=== PATIENT | male | born 1945 | race Caucasian/White ===

== ENCOUNTER 2022-08-19 09:40 | Observation (INO) ==
--- NOTE | 2022-08-03 11:00 | PAT Medication Instructions ---
Medication Instructions Date of Service August 03, 2022 Home Medications metoprolol succinate 50 mg tablet,extended release 24 hr 75 mg PO HS aspirin 81 mg tablet 81 mg PO HS cyanocobalamin (vitamin B-12) 1,000 mcg tablet (Vitamin B-12) 1,000 mcg PO QAM ergocalciferol (vitamin D2) 1,250 mcg (50,000 unit) capsule (Vitamin D2) 50,000 unit PO WK Glucosamine Chondroitin) 1 cap PO QAM lisinopril 40 mg tablet 40 mg PO QAM omega-3 fatty acids 1,000 mg PO QAM hydralazine 25 mg tablet 50 mg PO BID tamsulosin 0.4 mg capsule (Flomax) 0.4 mg PO 1300 diltiazem HCl 360 mg capsule,extended release 24 hr 360 mg PO QPM rosuvastatin 20 mg tablet 20 mg PO HS STOP taking 2 weeks before surgery (or as soon as possible if surgery is within 2 weeks) Glucosamine Chondroitin) 1 cap PO QAM omega-3 fatty acids 1,000 mg PO QAM DO NOT take the morning of surgery cyanocobalamin (vitamin B-12) 1,000 mcg tablet (Vitamin B-12) 1,000 mcg PO QAM ergocalciferol (vitamin D2) 1,250 mcg (50,000 unit) capsule (Vitamin D2) 50,000 unit PO WK lisinopril 40 mg tablet 40 mg PO QAM Take morning of surgery With a small sip of water, OTHERWISE NOTHING TO EAT OR DRINK AFTER MIDNIGHT: hydralazine 25 mg tablet 50 mg PO BID Take evening before surgery metoprolol succinate 50 mg tablet,extended release 24 hr 75 mg PO HS aspirin 81 mg tablet 81 mg PO HS (continue as normal unless told otherwise by surgeon) hydralazine 25 mg tablet 50 mg PO BID tamsulosin 0.4 mg capsule (Flomax) 0.4 mg PO 1300 diltiazem HCl 360 mg capsule,extended release 24 hr 360 mg PO QPM rosuvastatin 20 mg tablet 20 mg PO HS Other Notes If you have any questions please call us at [phone] or [phone] or [phone] or [phone]
--- NOTE | 2022-08-05 09:19 | Anesthesiology Consultation ---
Date of Service August 05, 2022 Assessment & Plan (1) Encounter for pre-operative examination: Chart Review Chart Review: Pending: Refer to Additional Notes / Consult section (pending PCP response on hyperkalemia and most recent pacer check ) and Patient seen in Pre Admission Testing -Please fax optimization form to PCP regarding mild hyperkalemia on preop labs - Please fax for most recent pacer check Pt is NOT a Same Day Joint candidate Per PAT appt on 08/05/22, patient denies any recent travel or large group activities. Pt is vaccinated for Covid. Will leave to surgeon's discretion if preop Covid testing needed. Educated on importance of using Covid precautions one week prior to surgery Pt seen by cardio 06/16/22= patient seen for cardiac evaluation and review of medications. Elevated BP readings. BP usually 150s to 160s systolically. Usually 90 diastolic. Continue current medications. Check BP on regular basis. Low-salt diet. Increase hydralazine dose for better BP control. Pacemaker interrogation is reviewed and showed normal pacemaker function and no significant cardiac arrhythmia. Teaching & Discussion Pre-Anesthesia Teaching/Discussion Notes: Instructed NPO after midnight before surgery,except medications with 15 cc of water. Medication instructions provided according to the PAT guidelines. History Surgery Operation Date: 08/19/22 10:40 Proposed Procedures p Right Total Knee Arthroplasty - Tristan Ramirez MD Height/Weight Height: 5 ft 7 in Weight: 80.6 kg Allergies Allergy/AdvReac Type Severity Reaction Status Date / Time ciprofloxacin Allergy Mild insomnia, Verified 08/02/22 08:11 "felt weird" chloroquine AdvReac Intermediate "got Verified 08/02/22 08:11 chills, cold, couldn't sleep or rest" Medications Home Medications Medication Instructions Recorded Confirmed Last Taken metoprolol succinate 50 mg 75 mg PO HS 07/11/20 08/02/22 07/28/20 22:00 tablet,extended release 24 hr aspirin 81 mg tablet 81 mg PO HS 07/16/20 08/02/22 07/22/20 cyanocobalamin (vitamin B-12) 1,000 mcg PO QAM 07/16/20 08/02/22 07/28/20 1,000 mcg tablet (Vitamin B-12) ergocalciferol (vitamin D2) 1,250 50,000 unit PO WK 07/16/20 08/02/22 07/25/20 mcg (50,000 unit) capsule (Vitamin D2) glucosamine sulf dipot 1 cap PO QAM 07/16/20 08/02/22 07/22/20 chlr,msm,chond 550 mg-C 30 mg-asmita 1 mg capsule (Glucosamine Chondroitin) lisinopril 40 mg tablet 40 mg PO QAM 07/16/20 08/02/22 07/28/20 07:00 omega-3 fatty acids 1,000 mg PO QAM 07/16/20 08/02/22 07/22/20 hydralazine 25 mg tablet 50 mg PO BID 07/29/22 08/02/22 Unknown tamsulosin 0.4 mg capsule (Flomax) 0.4 mg PO 1300 07/29/22 08/02/22 Unknown diltiazem HCl 360 mg 360 mg PO QPM 08/02/22 08/02/22 Unknown capsule,extended release 24 hr rosuvastatin 20 mg tablet 20 mg PO HS 08/02/22 08/02/22 Unknown Past Medical History Medical History Bradycardia reason for pacemaker CAD (coronary artery disease) PCI 1992- angioplasty and atherectomy of coronary artery History of kidney stones No recent issues Hyperlipidemia Hypertension Osteoarthritis Pacemaker placed 2018 @ [facility]--meditronic--follows with [facility]ology associates in [place], [place]. last checked in office March 2022 - also will be checked remotely [id number]. Exercise / Class Metabolic Activity II 4-5 Yardwork/Stairs/Walk up hill (one flight of stairs- no chest pain or SOB) Past Family History Family History Other No family history of adverse response to anesthesia Past Surgical History Surgical History History of appendectomy History of atherectomy 1991 History of cardiac catheterization x3--last 1991--no stents, had atherectomy History of colonoscopy with polypectomy History of cystoscopy with stone basketing History of surgical removal of ganglion cyst right History of tooth extraction all teeth removed S/P placement of cardiac pacemaker 2019 at [facility]. Status post left knee replacement Past Anesthesia History No Hx of Anesthesia Complications and No Family Hx of Anesthesia Complications History of PONV No Hx of PONV and No Hx of Motion Sickness Social History Smoking Status: Former smoker tobacco type: cigarettes Do You Dip or Chew Tobacco: No Smoking End Date: ~0082-4142's Hx Alcohol Use: Yes Alcohol type: beer and hard liquor alcohol intake frequency: 0-2 drinks per day Alcohol Intake Frequency Comment: 2 drinks/day Hx Substance Use: No substance use type: does not use Review of Systems Hx of snoring- no hx of sleep study Patient denies chest pain, shortness of breath, dyspnea on exertion, reflux, cough, wheezing, palpitations. No hx of seizures, stroke, [place]. No hx of blood clots or blood transfusions Physical Exam Vital Signs VITALS BP 154/95 (usually better controlled diastolically per patient) P 85 TEMP 97.8 SP02 97% RESP 16 Constitutional no acute distress ENMT Mouth: no TMJ clicking Thyromental Distance: > or= 3.5 Finger Breadths (4.0) Mallampati Class: III Full dentures on top and bottom Neck + limited neck extension (minimal) Respiratory normal respiratory effort; no respiratory distress Auscultation: lungs clear to auscultation bilaterally; no wheezes Cardiovascular Rate/Rhythm: regular rate and regular rhythm Heart Sounds: no murmur Vessels: no carotid bruit Musculoskeletal Spine: no pain with cervical ROM Extremities: extremities normal to inspection Psychiatric Orientation: alert Lab Results Anesthesia Preop Results Results Anesthesia Widget: WBC 5.53 K/ul (4.8-10.8) 08/05/22 Hgb 13.5 g/dl (14.0-18.0) L 08/05/22 Hct 39.7 % (42.0-52.0) L 08/05/22 Plt 239 K/uL (130-400) 08/05/22 Na 139 mmol/L (136-145) 08/05/22 K 5.2 mmol/L (3.5-5.1) H 08/05/22 Cl 105 mmol/L (98-107) 08/05/22 CO2 30 mmol/L (21-32) 08/05/22 BUN 16 mg/dl (6-23) 08/05/22 Creat 1.05 mg/dl (0.6-1.4) 08/05/22 Glucose Level 118 mg/dl (70-99(Fasting)) H 08/05/22 PT 10.3 Seconds (9.0-12.0) 08/05/22 PTT 26.5 Seconds (21.0-31.0) 08/05/22 INR 1.0 (0.9-1.1) 08/05/22 Blood Type B Positive 08/05/22 Antibody Screen NEGATIVE 08/05/22 Testing Electrocardiogram Date: 08/05/22 Atrial paced rhythm with prolonged AV conduction at 65 bpm Nonspecific T wave abnormality in anterior lateral leads When compared to EKG from July 23, 2020no significant changes found per cardio Chest X-Ray Date: 08/05/22 Findings: + NAD Echocardiogram Date: 06/11/21 EF: 55-60% LV Function: normal RWMA: + none Other Findings: + diastolic dysfunction (Grade 1) Mild to moderate RV enlargement Mild right and left atrial enlargement Aortic valve appears to be mildly sclerotic. Mitral valve shows mild sclerosis and mild mitral annulus calcification. Mild MR, mild TR, mild NV Estimated PASP 25-30 mmHg False tendon visualized in left ventricle. No intracardiac shunt; no significant pericardial effusion IVC appears normal diameter with normal respiration variation. Stress Test Date: 05/18/21 Type: nuclear Based upon EKG criteria, this test is nondiagnostic. Based on the nuclear imaging findings there is no evidence of myocardial ischemia or infarction Study is normal. COVID-19 Risk Screen Screening Information COVID-19 Screen Date: 08/05/22 Exposure 21 Days Family/Household +COVID Last 21 Days: No Exposure 10 Days Any COVID Exposure Last 10 Days: No Symptoms Last 10 Days Experienced COVID Sx Last 10 Days: No + COVID 0-90 Days COVID + in Last 0-90 Days: No Risk Plan COVID Risk Plan: No Risk Identified Patient Education COVID Preop Screening Education Complete: Yes
[~2022-08-19 09:40] MED LIST: ACETAMINOPHEN 500 MG TAB PO SCH; BUPIVACAINE 0.5 % 5 MG/1 ML PF 10ML VIAL ONE; CeleBREX 200 MG CAP PO SCH; FAMOTIDINE 20 MG TAB PO SCH; LR 500ML BOLUS, THEN 15ML/HR IV SCH; LR 60ML/HR IV SCH; METOCLOPRAMIDE HCL 10 MG TABLET PO SCH; ROPIVACAINE 0.5% 5 MG/ML 30 ML VIAL ONE; TRANEXAMIC ACID 1,000 MG **IV Intra-op IV SCH; ceFAZolin 2000MG 2,000 MG/15 ML SYR IV SCH
--- NOTE | 2022-08-19 10:27 | History & Physical Bridge Note ---
Date of Service August 19, 2022 History & Physical Bridge Note I have examined the patient, reviewed the History & Physical and in the interval since the performance of the History & Physical I have noted the following changes of clinical significance: no changes noted
[2022-08-19] MEDS ORDERED: ATROPINE SULFATE 0.1 MG/ML 10ML SYR IV PRN (10:51)
[2022-08-19] MEDS ORDERED: ONDANSETRON INJ 2 MG/ML 2 ML VIAL IV PRN ×2 (10:51→15:32)
[2022-08-19] MEDS ORDERED: fentaNYL citrate 100 MCG/2 ML VIAL IV PRN (10:51)
[2022-08-19] MEDS ORDERED: ePHEDrine sulfate 50 MG/ML AMP IV PRN (10:51)
[2022-08-19] MEDS ORDERED: MIDAZOLAM HCL 1 MG/ML 2ML VIAL ONE (11:38)
[2022-08-19] MEDS ORDERED: fentaNYL citrate 100 MCG/2 ML VIAL ONE (11:38)
[2022-08-19] MEDS ORDERED: SODIUM CHLORIDE 0.9% PF 50 ML VIAL ONE (12:46)
[2022-08-19] MEDS ORDERED: BUPIVACAINE LIPOSOME 1.3% 266 MG/20 ML VIAL ONE (12:46)
[2022-08-19] MEDS ORDERED: BUPIVACAINE/EPINEPHRINE 0.25% 1:200,000 30 ML VIAL ONE (12:46)
[2022-08-19] MEDS ORDERED: ONDANSETRON INJ 2 MG/ML 2 ML VIAL ONE (13:11)
[2022-08-19] MEDS ORDERED: KETOROLAC 30 MG/ML VIAL ONE (13:11)
[2022-08-19] MEDS ORDERED: DEXAMETHASONE SOD INJ 4 MG/ML VIAL ONE ×3 (13:11)
[2022-08-19] MEDS ORDERED: PROPOFOL IV EMULSION 10 MG/ML 20 ML VIAL IV ONE ×2 (13:11)
--- NOTE | 2022-08-19 15:00 | Operative Report ---
PG Post Operative Report Pre & Post Diagnosis Operation Date: 08/19/22 12:30 Pre-Op Diagnosis: Right Knee Advanced Degenerative Joint Disease Post-Op Diagnosis: Right Knee Advanced Degenerative Joint Disease I identified the patient and participated in the time-out.: Yes Procedure Operation Date: 08/19/22 12:30 Actual Procedures p Right Total Knee Arthroplasty(Right) - Tristan Ramirez MD Surgeon Tristan Ramirez MD Tank Car Inspector David Todd PA-C Estimated Blood Loss 50 Findings Consistent with Post-Op Diagnosis Operative findings were advanced right knee DJD. Patient had extensive grade 4 [id number] disease the entire medial compartment. Healed very large knee joint effusion. He had diffuse degenerative changes elsewhere. Osteophytes in all 3 compartments. Specimens Right knee sent for pathology Anesthesia Type Spinal MAC Complications none Disposition Accompanied Patient To Recovery: No Indications Patient is a 77-year-old gentleman whose had a long history of knee problems. He actually had his left knee replaced about 12 years ago and is done well with this. Over the past 10 years he developed increased pain discomfort and recurrent swelling in his right knee. He is exhausted and failed all conservative measures. He elected proceed with total knee arthroplasty. Description of Procedure Operative implants consist of: 1 Biomet Vanguard size 72.5 right posterior stabilized femoral component. 2. Biomet size 79 tibial tray. 3. 10 mm posterior stabilized polyethylene insert. 4. 31 x 8 all poly patella. The patient was taken to the operating, identified, and placed on the operating table supine position but all contact areas were properly padded. IV antibiotics tried by anesthesia team. A spinal anesthetic and abductor canal block had been provided in the holding area. Cervantes catheter was placed in sterile fashion. Right thigh high tourniquet was then placed in the right lower extremity was then prepped and draped in usual sterile fashion. The right leg was elevated and exsanguinated with use of an Esmarch and the tourniquet was placed at 300 mmHg. An anterior approach of the right knee was then performed through a longitudinal incision centered over the patella. Sharp dissection was carried through subcutaneous tissue down the extensor mechanism. A medial parapatellar arthrotomy incision was made. Some subperiosteal dissection was carried out medially. The fat pad was resected from Neath patella tendon. Lateral patellofemoral ligament was released. Patella subluxated laterally and the knee was flexed. The osteophytes taken off distal femur. The ACL and PCL released from the distal femur the tibia subluxated anteriorly. The external tibial alignment jig was then placed in the interface the tibia and adjusted 14 mm medially. Proximal tibial cut was made remove about a millimeter from the most deficient aspect medial tibial plateau. Some osteophytes taken off medial and posterior medially. Tibia sized to a size 79. Attention drawn the femur. The distal femur stem with a sharp drill. Intramedullary canal was suction. A right 6 degree valgus cutting guide was placed. Distal femoral cutting block was pinned in place. Distal femoral cut was made to take an additional 3 mm of bone off distal femur. The femur was then sized to a size 72.5. The AP cutting block was pinned parallel to the epicondylar axis which was 4 degrees of external rotation. The anterior cut, anterior chamfer, posterior cut, posterior chamfer cuts were made. The box cutting guide was placed in a just slight lateral and the box cut was made. The knee was flexed. The remnants of the medial and lateral menisci were excised. The osteophytes were taken off the posterior aspect the femur. A trial femoral component was placed. The tibial tray was pinned in maximum external rotation and the drill and stem punch were used to create defect in proximal tibia for the tibial tray. The knee was then trialed and the 10 mm insert fit most appropriately. Attention drawn the patella. The patella cleaned of all soft tissues. Patella thickness measured 20 mm in thickness was cut down to 13. Was sized to a size 31 patella. The lug holes were drilled for the 31 patella. The lateral osteophyte was removed. Patella button was placed. Knee was taken through range of motion and the patella tracked nicely with no thumbs test. Attention was then drawn to placing permanent components. All trial components were removed. Bone plug was placed in the distal femur to limit blood loss. Double batch Palacos G cement was mixed. Biomet Vanguard size 72.5 right posterior stabilized femoral component, size 79 tibial tray, 10 mm posterior stabilized polyethylene insert, and a 31 x 8 all-poly patella then cemented in place. New spreadout into full extension till cement hardened. Final cement check was then performed. Pericapsular tissues were injected with total 100 cc of combination of 20 cc of Exparel, 30 cc normal saline, 50 cc of quarter percent Marcaine with epinephrine. Patient did receive 1 g tranexamic acid. The tourniquet was then let down for final tourniquet time of 59 minutes. Hemostasis assured with electrocautery. Extensor mechanism then closed with combination 1 PDS suture and #1 Vicryl suture in in [id number] fashion. The extensor mechanism checked found to be intact with subcutaneous tissue then closed with 2 Dexon suture in buried interrupted fashion skin was closed skin matteo. Leg was then cleaned and dried and sterile dressed with Xeroform, 4 fours, sterile ABD pad, sterile cast padding, Raman bandage were applied. The patient then transferred to the recovery room in stable condition. Patient tolerated procedure well no complications. David Todd, my physician pizza hut assistant, was present for the entire procedure. His assistance was essential and required for appropriate patient positioning, prepping and draping, surgical exposure, performing the technical details of the operation, placement the implants, closure of the wound, and placement of the sterile bandage. I attest to the content of the Intraoperative Record and any orders documented therein. Any exceptions are noted below.
--- NOTE | 2022-08-19 15:24 | XRay Report ---
RIGHT KNEE 2 VIEWS History: Right total knee arthroplasty. Degenerative arthritis. Postop. FINDINGS: The patient is status post a right total knee arthroplasty. The hardware is intact. No frac ture or dislocation. Skin matteo are in place. IMPRESSION: Right total knee arthroplasty. No evidence for hardware complication. ACT 112: Negative or not required by law. Electronically signed by: Luis Moya M.D. 08/19/2022 3:23 PM
--- NOTE | 2022-08-19 15:26 | Anesthesiology Progress Note ---
Date of Service August 19, 2022 Anesthesia Post Procedure Vital Signs Vital Signs: Temp Pulse Resp BP Pulse Ox O2 Del Method O2 Flow Rate 08/19/22 15:19 97.0 F L 61 15 135/65 93 Room Air 08/19/22 15:09 61 12 129/60 93 Room Air 08/19/22 14:59 61 12 129/60 95 Room Air 08/19/22 14:49 62 19 120/50 L 98 Room Air 08/19/22 14:49 97.0 F L 62 12 118/55 L 99 Nasal Cannula 4 08/19/22 10:12 98.4 F 69 20 178/80 H 95 Room Air Pain Intensity Right Knee: Pain Intensity: 3 Transfer of Care Handoff Completed per policy Notes Mental Status: alert / awake / arousable and participated in evaluation Patient Amnestic to Procedure: Yes Nausea / Vomiting: adequately controlled Pain: adequately controlled Airway Patency, RR, SpO2: stable & adequate BP & HR: stable & adequate Hydration State: stable & adequate Neuraxial Anesthesia: was administered and sensory block is resolving Anesthetic Complications: no major complications apparent and Pt Satisfied with anesthetic care
[2022-08-19] MEDS ORDERED: HYDROmorphone INJ 0.5 MG/0.5 ML SYR IV PRN (15:32)
[2022-08-19] MEDS ORDERED: bisacodyL 10 MG SUPP PR PRN (15:32)
[2022-08-19] MEDS ORDERED: oxyCODONE HCL IR 5 MG TAB (IMMEDIATE RELEASE) PO PRN (15:32)
[2022-08-19] MEDS ORDERED: MAGNESIUM HYDROXIDE SUSP 30 ML UDC PO PRN (15:32)
[2022-08-19] MEDS ORDERED: METOCLOPRAMIDE HCL INJ 5 MG/ML 2 ML VIAL IV PRN (15:32)
[2022-08-19] MEDS ORDERED: NALOXONE HCL 0.4 MG/1 ML VIAL/CARP IV PRN (15:32)
[2022-08-19] MEDS ORDERED: ALUMINUM/MAGNESIUM SUSP 30 ML UDC PO PRN (15:32)
[2022-08-19] MEDS: SODIUM CHLORIDE 0.9% 1000ML 1,000 ML IV SCH (16:02)
[2022-08-19] MEDS ORDERED: ERGOCALCIFEROL 50,000 UNITS 1250 MCG CAP PO SCH (17:00)
[2022-08-19] MEDS: KETOROLAC TROMETHAMINE 15 MG/ML VIAL IV SCH ×2 (17:20→22:08)
[2022-08-19] MEDS: ASCORBIC ACID 500 MG TAB PO SCH (17:21)
[2022-08-19] MEDS: ceFAZolin 1000MG 1,000 MG/7.5 ML SYR IV SCH (20:13)
[2022-08-19] MEDS: ASPIRIN 81 MG ECTAB PO SCH (20:17)
[2022-08-19] MEDS: DOCUSATE SODIUM 100 MG CAP PO SCH (20:17)
[2022-08-19] MEDS: hydrALAZINE TAB 50 MG TAB PO SCH (20:18)
[2022-08-19] MEDS ORDERED: TRANEXAMIC ACID / 0.7% NACL 1,000 MG/100 ML BAG IV SCH (20:45)
[2022-08-19] MEDS ORDERED: ROSUVASTATIN CALCIUM 20 MG TAB PO SCH (21:00)
[2022-08-19] MEDS ORDERED: dilTIAZem HCL 180 MG CAPCR PO SCH (21:00)
[2022-08-19] MEDS ORDERED: METOPROLOL SUCC 25MG EXT REL TAB PO SCH (21:00)
[2022-08-19] MEDS ORDERED: DOCUSATE SODIUM/SENNA 50/8.6MG TAB PO SCH (21:00)
[2022-08-19] MEDS ORDERED: SENNA 8.6 MG TAB PO SCH (21:00)
[2022-08-19] MEDS: ACETAMINOPHEN 500 MG TAB PO SCH (22:08)
[2022-08-20] MEDS: KETOROLAC TROMETHAMINE 15 MG/ML VIAL IV SCH ×2 (04:17→10:45)
[2022-08-20] MEDS: ceFAZolin 1000MG 1,000 MG/7.5 ML SYR IV SCH (04:17)
[2022-08-20] MEDS: SODIUM CHLORIDE 0.9% 1000ML 1,000 ML IV SCH (04:32)
[2022-08-20] MEDS: ACETAMINOPHEN 500 MG TAB PO SCH (05:46)
[2022-08-20 06:17] LABS: Hematocrit (blood only) 26.4 % (42.0-52.0); Mean Corpuscular Hemoglobin 30.5 pg (25.0-34.0); Mean Corpuscular Hgb Conc 34.1 g/dL (32.0-36.0); Mean Corpuscular Volume 89.5 fL (80.0-100.0); Mean Platelet Volume 10.6 fL (9.4-12.4); Platelet Count 185 K/uL (130-400); RDW Coefficient of Variation 12.5 % (11.5-14.5); RDW Standard Deviation 41.8 fL (36.4-46.3); Red Blood Count 2.95 M/uL (4.70-6.10); White Blood Count 13.44 K/ul (4.8-10.8)
[2022-08-20 06:30] LABS: Calcium 8.3 mg/dl (8.5-10.1); Creatinine Clr Calc Pharmacy 50.9 ml/min; Est GFR (African American) 73.6 ml/min; Est GFR (Non-African American) 63.5 ml/min
--- NOTE | 2022-08-20 07:46 | Progress Notes ---
DATE OF NOTE: 08/20/2022 SUBJECTIVE: A 77-year-old gentleman postoperative day 1 from a right knee replacement. He is doing well. Reports no pain. No chest pain or shortness of breath. Not feeling dizzy or lightheaded. Ho ping to go home today. OBJECTIVE: VITAL SIGNS: Temperature 37.0. Vital signs are stable. GENERAL: Shows a pleasant, elderly male. He is awake, alert, and oriented and looks quite comfortab le this morning. LUNGS: Clear to auscultation. HEART: Has a regular rate and rhythm. ABDOMEN: Soft, nontender, nondistended. EXTREMITIES: Grossly neurovascularly intact except as follows. Examination of the right leg reveals the dressing to be clean, dry and intact. No significant draina ge. He can dorsiflex and plantarflex his foot appropriately. LABORATORY DATA: Hemoglobin 9.0. Hematocrit 26.4. Electrolytes are stable. ASSESSMENT: A 77-year-old gentleman, postoperative day 1 from right knee replacement, doing well. P ain is controlled. He is neurologically intact. PLAN: 1. DVT prophylaxis including thigh-high TEDs, SCDs, and aspirin twice a day. 2. PT/OT, weightbear as tolerated. Right total knee protocol. 3. Pain control, doing okay with current pain regimen. 4. Disposition: Plan to discharge to home with some home health and friends assistance if he does o geeta in therapy today. Job ID: [id number]
[2022-08-20] MEDS ORDERED: dexAMETHasone 10 MG in SYRINGE 0 ML IV SCH (08:00)
[2022-08-20] MEDS: ASPIRIN 81 MG ECTAB PO SCH (08:09)
[2022-08-20] MEDS: DOCUSATE SODIUM 100 MG CAP PO SCH (08:09)
[2022-08-20] MEDS: hydrALAZINE TAB 50 MG TAB PO SCH (08:09)
[2022-08-20] MEDS: ASCORBIC ACID 500 MG TAB PO SCH (08:10)
[2022-08-20] MEDS ORDERED: NON-FORMULARY MEDICATION (Glucos Sul 2kcl-Msm-Chond-C-Mn [Glucosamine Chondroitin] 550-30- PO SCH (09:00)
[2022-08-20] MEDS ORDERED: OMEGA-3 (PURIFIED FISH OIL) 1 GM CAP PO SCH (09:00)
[2022-08-20] MEDS ORDERED: lisinopril 40 MG TAB PO SCH (09:00)
[2022-08-20] MEDS ORDERED: CYANOCOBALAMIN (B-12) 500 MCG TABLET PO SCH (09:00)
[2022-08-20] MEDS ORDERED: MULTIVITAMIN TAB PO SCH (09:00)
[2022-08-20] MEDS ORDERED: TAMSULOSIN HCL 0.4 MG CAP PO SCH (13:00)
--- NOTE | 2022-08-24 13:27 | Discharge Summary ---
Date of Service August 24, 2022 Discharge Data Procedures Performed Operation Date: 08/19/22 12:30 Actual Procedures p Right Total Knee Arthroplasty(Right) - Tristan Ramirez MD Hospital Course (1) Status post total right knee replacement: This is a 77 year old patient admitted on 08/19/22 and underwent total knee arthroplasty. He tolerated the procedure well and there were no complications. Transferred to the PACU post op and later to the orthopedic floor for further care. He was given ancef for antibiotic prophylaxis. He was also given MAJO stockings, SCDs, and aspirin for DVT prophylaxis. Hemoglobin, hematocrit, and vital signs were monitored during his hospital stay and remained stable. Did not require any blood transfusions. There were no complications during his hospital stay. By post op day #1 the patient was tolerating a regular diet, pain was reasonably controlled with oral pain medicine, and he was participating in physical therapy. On post op day #1 the patient was discharged home and set up with home health care. He was given printed discharge instructions including prescriptions for extra strength tylenol, aspirin, cefadroxil, ketorolac, zofran, senokot, flomax, and oxycodone. Continue physical therapy, weight bearing as tolerated. Continue MAJO stockings. Follow up approximately 2 weeks post op or sooner if there are problems or concerns. Coding Level of Care Code None Diagnoses Status post total right knee replacement Z96.651
== END 2022-08-20 12:02 | disposition home health service (06) ==
LOC: 3E 09:40 → ASU 09:40
DX: Z79.899 Other long term (current) drug therapy; Z88.8 Allergy status to other drugs, medicaments and biological substances; Z88.1 Allergy status to other antibiotic agents; Z79.82 Long term (current) use of aspirin; M17.11 Unilateral primary osteoarthritis, right knee